=== PATIENT | female | born 1995 | race Caucasian/White ===

== ENCOUNTER 2019-04-14 09:00 | Emergency (ER) | payer BC, MEDICAID ==
[~2019-04-14] VITALS: Ht 172.7 cm; Wt 61.2 kg
[2019-04-14 09:17] VITALS: BP 134/78
--- NOTE | 2019-04-14 09:18 | NUR ---
ARRIVAL PATIENT ARRIVED TO [facility], C/O OF GENERALIZED RASH SINCE TUESDAY, PATIENT STATES SHE FINISHED AN ANTIBIOTIC ON TUE AND RASHED APPEARED ON TUESDAY, RASH IS ITCHING AND RED. CAME TO THE ED FOR EVALUATION BY EDP.
[2019-04-14] MEDS ORDERED: SOLU-MEDROL IM STA (09:26)
[2019-04-14] MEDS ORDERED: PEPCID PO STA (09:26)
--- NOTE | 2019-04-14 09:26 | ER.PDOC ---
General Chief Complaint: Skin Rash/Abscess Stated Complaint: RASH,HEADACHE,EYES TRAVEL OUT OF US: No Time seen by MD: 09:25 Source: patient Exam Limitations: no limitations History of Present Illness Initial Comments 24 Y/O F TO ED WITH RASH X 24 HRS. TOOK 2 PILLS FOR VAG INFECTION-CHLAMYDIA ON TUE, RASH STARTED TUESDAY AM. NO FEVER, NO N/V/D, NO SOB. WAS ALSO ON AB Z 7 DAYS FINISHED ON TUE TREATING BACT VAGINOSIS. NO PELVIC COMPLAINTS. Timing/Duration: 24 hours Severity: moderate Modifying Factors: improves with cold therapy Associated Symptoms: denies symptoms, rash Allergies: Coded Allergies: Penicillins (Verified Allergy, Unknown, RASH, 04/14/19) tramadol (Verified Allergy, Unknown, RASH, 04/14/19) Home Meds No Active Prescriptions or Reported Meds Past Medical History Medical History: no pertinent history, other Surgical History: tubal Family History Significant Family History: no pertinent family hx Social History Smoking: cigarettes Alcohol Use: none Drug Use: none Reviewed Nursing Reviewed: Vital Signs, Abn. Noted, Nursing Assessment Review of Systems Constitutional: no symptoms reported EENTM: no symptoms reported Respiratory: no symptoms reported Cardiovascular: no symptoms reported Gastrointestinal: no symptoms reported Genitourinary: no symptoms reported Musculoskeletal: no symptoms reported Skin: see HPI, rash Psychiatric/Neurological: no symptoms reported Hematologic/Lymphatic: no symptoms reported Immunological/Allergic: no symptoms reported Physical Exam General Appearance: No Apparent Distress, WD/WN EENT: eyes nml inspection, nml ENT inspection, pharynx nml Neck: Non-Tender, Full Range of Motion, Supple, Normal Inspection Respiratory: chest non-tender, lungs clear, normal breath sounds, no respir atory distress CVS: reg rate & rhythm, no murmur, no gallop, pulses nml Gastrointestinal: Normal Bowel Sounds, No Organomegaly, No Pulsatile Mass Back: Normal Inspection, No CVA Tenderness Extremities: Normal Range of Motion, Non-Tender, Normal Inspection 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 Results/Orders Results/Orders Orders - PAM MARQUEZ DO Famotidine (Pepcid) (04/14/19 09:26) Methylprednisolone Sod Succ (Solu-Medrol (04/14/19 09:26) Methylprednisolone Sod Succ (Solu-Medrol (04/14/19 09:37) Famotidine (Pepcid) (04/14/19 09:37) Vital Signs Date Time Temp Pulse Resp B/P (MAP) Pulse Ox O2 Delivery O2 Flow Rate FiO2 04/14/19 09:17 97.3 91 18 134/78 (96) 98 Room Air 97.3 04/14/19 09:15 97.3 91 18 98 Room Air 97.3 04/14/19 09:14 97.3 91 18 97.3 Administered Medications Medications (Trade) Dose Ordered Sig/Shakir Route PRN Reason Start Time Stop Time Status Last Admin Dose Admin Famotidine (Pepcid) 20 mg STAT STAT PO 04/14/19 09:26 04/14/19 09:29 DC 04/14/19 09:41 20 MG Methylprednisolone Sodium Succinate (Solu-Medrol) 125 mg STAT STAT IM 04/14/19 09:26 04/14/19 09:29 DC 04/14/19 09:41 125 MG Progress Progress RASH NEAR RESOLVED AT D/C, DIFF DX IN DETAIL WITH PATIENT. Departure Time of Disposition: 10:08 Disposition: 01 HOME, SELF-CARE Impression: Primary Impression: Acute allergic reaction Additional Impression: Urticaria Condition: Stable Referrals: PCP,UNKNOWN (PCP) PRIMARY CARE PROVIDER Additional Instructions: TO ED NEEDED OR IF WORSE, RX PREDNISONE, PEPCID. TAKE BENADRYL NEEDED. Scripts No Active Prescriptions or Reported Meds Duration or Time Spent with Pa: 15 MIN PAM MARQUEZ DO Apr 14, 2019 09:26
[2019-04-14] MEDS ORDERED: PEPCID ONE (09:37)
[2019-04-14] MEDS ORDERED: SOLU-MEDROL ONE (09:37)
[2019-04-14 10:16] VITALS: BP 123/68
[2019-04-14 10:17] VITALS: BP 123/68
== END 2019-04-14 10:27 | disposition home or self-care (01) ==
LOC: ER 09:00
DX: L50.0 Allergic urticaria (principal); F17.210 Nicotine dependence, cigarettes, uncomplicated; Z88.0 Allergy status to penicillin; Z88.8 Allergy status to other drugs, medicaments and biological substances
CPT/HCPCS: 96372; 99284; J2930